=== PATIENT | male | born 2005 | race African-American/Black ===

== ENCOUNTER 2024-12-15 06:15 | Emergency (ER) | payer BC, SELFPAY ==
--- NOTE | ~2024-12-15 | XR_ITS ---
Examination: XR chest 2V Clinical History: shortness of breath Comparison: None Technique: PA and Lateral Findings: Cardiomediastinal silhouette normal size and configuration. Lungs clear. No acute bony abnormality. IMPRESSION: 1. No acute cardiopulmonary findings. Reviewed, dictated and finalized at location [employer]
--- NOTE | 2024-12-15 06:25 | ED_ITS ---
HPI - SOB/Dyspnea General Chief Complaint: Shortness of Breath/Dyspnea Stated Complaint: SOB and cough Time Seen by Provider: 12/15/24 06:19 Source: patient Mode of arrival: ambulatory Limitations: no limitations History of Present Illness HPI Narrative: This is a 19-year-old male with history of diabetes who presents the ED for flu- like symptoms. Patient states for the past 5 days, he has been having cough and congestion. States that this morning he woke up with right ear pain and difficulty hearing in some mild shortness of breath prompting him to come to the ED. He has no known sick contacts. Denies fevers, chills. He also states that he woke up this morning with green crusting to his bilateral eyes. Related Data Allergies Allergy/AdvReac Type Severity Reaction Status Date / Time azithromycin (From Zithromax) Allergy Unknown Rash Verified 12/15/24 06:17 Review of Systems Review of Systems: Gen.: Denies fevers or chills Eyes: As per HPI ENT: As per HPI Respiratory: As per HPI CV: Denies chest pain or palpitations GI: Denies abdominal pain nausea, emesis or diarrhea denies burning, urgency, frequency or hematuria Musculoskeletal: Denies back pain or muscle pain Neuro: Denies numbness, tingling, weakness or focal weakness Skin: Denies rash Except as documented, all other systems reviewed and negative Exam Narrative: APPEARANCE: No acute distress, nontoxic, resting in bed EYES: Bilateral conjunctival injection HEENT: Normocephalic, atraumatic. Bilateral TM injection and bulging RESPIRATORY: No respiratory distress Clear to auscultation bilaterally with no rhonchi wheezing or rales. CARDIOVASCULAR: Regular rate and rhythm without murmurs rubs or gallops. ABDOMINAL: Soft, nontender, nondistended, no rebound or guarding MUSCULOSKELETAl: Moves all extremities. No clubbing, cyanosis or edema. NEURO: Awake and alert. Following commands, speech normal, no focal deficits SKIN:: Warm, dry. No rashes lesions or abrasions PSYCHIATRIC: Normal affect/mood, Course Vital Signs Vital signs: Vital Signs Temperature 98.6 F 12/15/24 06:28 Pulse Rate 99 12/15/24 06:28 Respiratory Rate 18 12/15/24 06:28 Blood Pressure 153/108 H 12/15/24 06:28 Pulse Oximetry 98 12/15/24 06:28 Oxygen Delivery Room Air 12/15/24 06:28 Temperature 98.6 F 12/15/24 06:28 Pulse Rate 99 12/15/24 06:28 Respiratory Rate 18 12/15/24 06:28 Blood Pressure 153/108 H 12/15/24 06:28 Pulse Oximetry 98 12/15/24 06:28 Oxygen Delivery Room Air 12/15/24 06:28 MDM - SOB/Dyspnea MDM Narrative Medical decision making narrative: 19-year-old male Presenting for flu-like symptoms. On initial evaluation patient was in no acute distress afebrile, hemodynamic stable. Differentials include but are not limited to: Viral syndrome, strep pharyngitis, viral pharyngitis, sinusitis, laryngitis, [facility], R[facility] Notable exam findings: Conjunctival injection, bilateral TM injection and bulging Notable lab findings: Covid/flu/rsv pending Notable imaging findings: Chest x-ray showed no acute process. Patient remained hemodynamically stable throughout his ED course. He will be given prescriptions for Augmentin and polymyxin ointment. He was educated on Tylenol and ibuprofen use. He was advised that we will call him for any positive results for COVID/flu/RSV. He was advised follow-up with his PCP in the next week for re-evaluation. Patient was agreeable to plan. Given strict return precautions. Medical Records Attestation: I reviewed the patient's medical records. Lab Data Labs: Lab Results 12/15/24 Range/Units 06:25 Influenza A (RT-PCR) Pending Influenza B (RT-PCR) Pending RSV (RT-PCR) Pending SARS-CoV-2 RNA (RT-PCR) Pending Imaging Data Attestation: I personally reviewed and interpreted this imaging study as follows: My impression: Chest x-ray: Normal cardiac silhouette, no consolidations, no pleural effusions, no pulmonary vascular congestion Discharge Plan Discharge Clinical Impression: Conjunctivitis Qualifiers: Conjunctivitis type: acute Acute conjunctivitis type: bacterial Laterality: bilateral Qualified Code(s): H10.33 - Unspecified acute conjunctivitis, bilateral Otitis media Qualifiers: Otitis media type: unspecified Chronicity: acute Qualified Code(s): H66.90 - Otitis media, unspecified, unspecified ear Patient Disposition: Home Condition: Stable Instructions: Antibiotic Form, Ear Infection (ED), Conjunctivitis (ED) Additional Instructions: Imaging showed no evidence of pneumonia. You were given prescriptions for Augmentin and Polytrim ointment, take as prescribed. Follow up with your PCP in the next week for reevaluation. Return to the ED for new or worsening symptoms. For pain, discomfort or temperature greater than or equal to 100.8 ?F please alternate the following 2 medications as needed. First medication- acetaminophen/Tylenol- 1000mg every 6-8 hours as needed for above indications. Second medication- ibuprofen/Motrin-600mg every 6-8 hours as needed for above indication. Patient Language: Belarusian Prescriptions: New amoxicillin-pot clavulanate 875-125 mg tablet 1 tablet PO Q12H Qty: 14 0RF polymyxin B sulf-trimethoprim 10,000 unit- 1 mg/mL drops 2 drp EACH EYE Q6H 7 Days Qty: 10 0RF Follow-up/Referrals: Alvaro Barba MD [Physician, Family Practice] UNKNOWN,DOCTOR [Primary Care Provider]
[2024-12-15 06:28] VITALS: BP 153/108; PULSE 99; RESP 18; TEMP 37; O2SAT 98
[2024-12-15 07:05] LABS: Influenza A QL RT-PCR Negative (Negative); Influenza B QL RT-PCR Negative (Negative); RSV RNA, RT-PCR Negative (Negative); SARS-CoV-2 RNA PCR Negative (Negative)
== END 2024-12-15 06:56 | disposition home or self-care (01) ==
LOC: ANHED 06:43
PROVIDERS: Emergency Provider Student in an Organized Health Care Education/Training Program
DX: H10.33 Unspecified acute conjunctivitis, bilateral (principal); H66.93 Otitis media, unspecified, bilateral; E11.9 Type 2 diabetes mellitus without complications; Z20.822 Contact with and (suspected) exposure to COVID-19
CPT/HCPCS: 71046; 87637; 99283